=== PATIENT | female | born 1980 | race Caucasian/White ===

== ENCOUNTER → 2020-07-30 | Outpatient (CLI) | payer OTHER ==
--- NOTE | 2020-08-03 11:53 | MM ---
Reason for exam: screening (asymptomatic). Last mammogram was performed 12 years and 1 month ago. Physical Findings: A clinical breast exam by your physician is recommended on an annual basis and results should be correlated with mammographic findings. MG Screening Mammo w CAD Bilateral CC and MLO view(s) were taken. The breast tissue is extremely dense which could obscure a lesion on mammography. ASSESSMENT: Incomplete: need additional imaging evaluation, BI-RAD 0 RECOMMENDATION: Ultrasound of both breasts. (extensive dense tissue) [facility] will attempt to contact patient to return for ultrasound.
== END | disposition home or self-care (01) ==
LOC: RADMAMWWP 15:50
PROVIDERS: ATTEND Family Medicine
DX: Z12.31 Encounter for screening mammogram for malignant neoplasm of breast (principal)
CPT/HCPCS: 77067

== ENCOUNTER → 2020-08-21 | Outpatient (CLI) | payer OTHER ==
--- NOTE | 2020-08-21 11:51 | USB ---
Reason for exam: additional evaluation requested from abnormal screening. Physical Findings: Nurse Summary: Patient complains of sharp, burning intermittent pain right nipple x 2 months ago, not now. 1cm nodule right breast 10 o'clock (nurse mj). US Breast Workup [facility] Technologist: Kimberlyn Handy Right complete breast ultrasound includes all four quadrants, the retroareolar region and axilla. Finding demonstrates a 0.4 x 0.5 x 0.2cm hypoechoic lesion at 2 o'clock, possible fibroadenoma, a 0.6 x 1.0 x 0.3cm oval, circumscribed, hypoechoic lesion at 10 o'clock, possible fibroadenoma, 6 month follow up recommended and a 1.3 x 0.5cm lymph node at the axilla. Left complete breast ultrasound includes all four quadrants, the retroareolar region and axilla. Finding demonstrates a 0.4 x 0.4 x 0.3cm hypoechoic lesion at 5 o'clock, possible fibroadenoma, 6 month follow up recommended and a 1.8 x 0.5 x 0.7cm lymph node at the axilla. These results were verbally communicated with the patient and result sheet given to the patient on 08/21/20. ASSESSMENT: Probably benign, BI-RAD 3 RECOMMENDATION: Ultrasound of both breasts in 6 months. Manage on a clinical basis with regard to burning nipple pain.
== END | disposition home or self-care (01) ==
LOC: RADUSWWP 10:22
PROVIDERS: ATTEND Family Medicine
DX: R92.8 Other abnormal and inconclusive findings on diagnostic imaging of breast (principal)

== ENCOUNTER → 2021-08-16 | Outpatient (CLI) | payer OTHER ==
--- NOTE | 2021-08-16 14:59 | MM ---
Reason for exam: additional evaluation requested from prior study. Last mammogram was performed 1 year and 1 month ago. Physical Findings: A clinical breast exam by your physician is recommended on an annual basis and results should be correlated with mammographic findings. MG Diagnostic Mammo w CAD [facility] Bilateral CC and MLO view(s) were taken. Prior study comparison: July 30, 2020, bilateral MG screening mammo w CAD. The breast tissue is extremely dense which could obscure a lesion on mammography. No suspicious calcifications or other discrete abnormality. ASSESSMENT: Incomplete: need additional imaging evaluation, BI-RAD 0 RECOMMENDATION: Ultrasound of both breasts.
--- NOTE | 2021-08-16 15:01 | USB ---
Reason for exam: additional evaluation requested from abnormal screening. US Breast BILAT Right complete breast ultrasound includes all four quadrants, the retroareolar region and axilla. Finding demonstrates a 0.3 x 0.2 x 0.4cm stable lesion too small to characterize at 2 o'clock 3cm from nipple and a 0.6 x 0.4 x 0.8cm hypoechoic lesion at 10 o'clock 7cm from nipple versus 1cm previously, benign. Left complete breast ultrasound includes all four quadrants, the retroareolar region and axilla. Finding demonstrates a 0.3 x 0.3 x 0.4cm lesion too small to characterize at 5 o'clock 2cm from nipple, maybe new, but still similar to a previous 5mm area which has resolved. ASSESSMENT: Probably benign, BI-RAD 3 RECOMMENDATION: Follow-up diagnostic mammogram and ultrasound of both breasts in 1 year.
== END | disposition home or self-care (01) ==
LOC: RADMAMWWP 13:03
PROVIDERS: ATTEND Family Medicine
DX: R92.8 Other abnormal and inconclusive findings on diagnostic imaging of breast (principal); N64.89 Other specified disorders of breast
CPT/HCPCS: 77066

== ENCOUNTER → 2022-10-14 | Outpatient (CLI) | payer OTHER ==
--- NOTE | 2022-10-15 07:34 | US ---
EXAMINATION TYPE: US thyroid st tissue head/neck DATE OF EXAM: 10/14/2022 COMPARISON: NONE CLINICAL INDICATION: Female, 42 years old with history of E03.9 HYPOTHYROIDISM E04.9 ENLARGED THYROID ; Abnormal lab values, Pt. on thyroid meds x 30 yrs GLAND SIZE: Right Lobe: 3.4x0.5x0.9 cm Overall Parenchyma: heterogenous Left Lobe: 2.8x0.6x0.7 cm Overall Parenchyma: heterogenous Isthmus Thickness: 0.1 cm NODULES RIGHT: # of nodules measured on right: 0 LEFT: # of nodules measured on left: 0 ISTHMUS: # of nodules measured in the isthmus: 0 Bilateral neck scanned, no evidence of lymphadenopathy. IMPRESSION: thyroid appears atrophic and diffusely heterogenous bilaterally
== END | disposition home or self-care (01) ==
LOC: RADUSWWP 16:21
PROVIDERS: ATTEND Family Medicine
DX: E03.9 Hypothyroidism, unspecified (principal)
CPT/HCPCS: 76536